=== PATIENT | female | born 1955 | race American Indian/Alaskan Native ===

== ENCOUNTER 2016-04-18 12:58 | Outpatient (CLI) | payer OTHER ==
--- NOTE | 2016-04-18 14:06 | XRay Report ---
ROUTINE CHEST, TWO VIEWS: PA and lateral views demonstrate the heart and mediastinal contour to be of normal size and shape. The lungs are clear and fully expanded and the soft tissues and bony structures are normal. IMPRESSION: Normal study.
== END 2016-04-18 12:59 | disposition home or self-care (01) ==
LOC: XRAY 12:58
DX: J18.9 Pneumonia, unspecified organism (principal)
CPT/HCPCS: 71020

== ENCOUNTER 2016-05-17 12:06 | Outpatient (CLI) | payer OTHER ==
--- NOTE | 2016-05-17 14:17 | XRay Report ---
PARANASAL SINUSES: History: Allergic rhinitis, chronic sinusitis. Multiple views of the paranasal sinuses demonstrate normal formation with no abnormal mucoperiosteal thickening or fluid levels. The bony diaz are intact. There is minimal deviation of the nasal septum to the right side by 2-3 mm. IMPRESSION: Normal sinuses.
== END 2016-05-17 12:07 | disposition home or self-care (01) ==
LOC: XRAY 12:06
DX: J32.8 Other chronic sinusitis (principal); J30.9 Allergic rhinitis, unspecified; J34.2 Deviated nasal septum
CPT/HCPCS: 70220